=== PATIENT | female | born 1995 | race Caucasian/White ===

== ENCOUNTER → 2017-01-15 22:20 | Emergency (ER) | payer BC ==
[~2017-01-15 22:20] MED LIST: BACTRIM DS TABL1 TA1 PO; FLEXERIL10 MG PO; IBUPROFEN800 MG PO; KEFLEX500 M2 PO; NO MEDICATIONS; TYLENOL #3 PO; VOLTAREN75 MG PO
== END | disposition left against medical advice (07) ==
LOC: SED 22:20
DX: Z53.21 Procedure and treatment not carried out due to patient leaving prior to being seen by health care provider (principal)